=== PATIENT | male | born 1980 | race African-American/Black ===

== ENCOUNTER 2017-05-15 19:53 | Emergency (ER) | payer OTHER, SELFPAY ==
[2017-05-15] MEDS ORDERED: DILA100C PO (20:03)
[2017-05-15] MEDS ORDERED: LIDOCAINE 2% MDV 20 ML VIAL SC ONE (22:15)
[2017-05-15 23:08] VITALS: BP 148/80
== END 2017-05-15 23:30 | disposition home or self-care (01) ==
LOC: M ED 20:55
DX: R55 Syncope and collapse (principal); G40.909 Epilepsy, unspecified, not intractable, without status epilepticus; S01.01XA Laceration without foreign body of scalp, initial encounter; W19.XXXA Unspecified fall, initial encounter; Y92.148 Other place in prison as the place of occurrence of the external cause; Y93.67 Activity, basketball; Y99.9 Unspecified external cause status; F17.200 Nicotine dependence, unspecified, uncomplicated; Z79.899 Other long term (current) drug therapy; Z91.013 Allergy to seafood